=== PATIENT | female | born 2000 ===

== ENCOUNTER 2020-04-21 17:30 | Inpatient (IN) ==
[2020-04-21] MEDS ORDERED: LACTATED RINGERS 1,000 ML IV PRN (18:10)
[2020-04-21] MEDS ORDERED: LACTATED RINGERS 1,000 ML IV ONE (18:10)
[2020-04-21 18:15] LABS: Apearance,Urine Slightly Hazy (Clear); Bilirubin,Urine Small mg/dL (Negative); Blood, Urine Negative (Negative); Glucose,Urine (UA) Negative (Negative); Ketones,Urine 20 mg/dL (Negative); Mucus,Urine Many /LPF (Occasional); Nitrite,Urine Negative (Negative); Protein,Urine 30 MG/DL; RBC,Urine 3 /HPF (0-4); Squamous Epithelial Cell,Urine Occasional /HPF (0-10); Urine Color Orange (Yellow); Urine Specific Gravity 1.029 (1.001-1.035); WBC,Urine 4 /HPF (0-6)
[2020-04-21] MEDS ORDERED: ACETAMINOPHEN 500 MG TABLET PO PRN (18:43)
[2020-04-21 19:00] LABS: Basophils % 0.1 % (0.0-0.8); Hematocrit 37.6 VOL% (35.7-47.0); Immature Granulocytes % 0.4 %; Immature Granulocytes Absolute 0.06 #; Lymphocytes # 0.6 10*3/uL (1.4-4.0); Lymphocytes % 4.2 % (21.3-54.2); Mean Corpuscular HGB Conc 31.9 GM/DL (32-36); Mean Corpuscular Volume 87.6 FL (87-102); Mean Platelet Volume 10.4 FL (9.6-12.0); Monocytes % 3.7 % (1.7-12.7); Neutrophils % 91.6 % (38.7-73.9); Platelet Count 409 T/CUMM (130-400); Red Blood Count 4.29 MC/CUMM (3.8-5.5); Red Cell Distribution Width 13.7 % (9.3-17.3); White Blood Count 13.7 T/CUMM (4-12)
[2020-04-21] MEDS ORDERED: LEVOFLOXACIN INJ 500 MG in PREMIX 1 EACH IV ONE (19:50)
[2020-04-21 20:33] LABS: Band Neutrophils 1 % (0-10); Lymphocytes 9 % (20-55); Segmented Neutrophils 88 % (50-85); Total Cells Counted 100
[2020-04-21 20:34] LABS: Hypochromasia 1+; Microcytosis 1+; Toxic Granulation 1+
[2020-04-21 20:35] LABS: Platelet Estimate Normal
[2020-04-21] MEDS ORDERED: MEPERIDINE 50 MG/1 ML VIAL IM ONE (21:34)
[2020-04-21] MEDS ORDERED: ONDANSETRON 4 MG/2 ML VIAL IV ONE (21:54)
[2020-04-21] MEDS ORDERED: MEPERIDINE 50 MG/1 ML VIAL IV ONE (21:54)
[2020-04-21] MEDS: LACTATED RINGERS 1,000 ML IV SCH (22:18)
[2020-04-22] MEDS ORDERED: MEPERIDINE 50 MG/1 ML VIAL IV ONE (03:24)
[2020-04-22] MEDS: LACTATED RINGERS 1,000 ML IV SCH ×2 (06:45→18:03)
[2020-04-22 09:37] LABS: Basophils % 0.1 % (0.0-0.8); Eosinophils % 0.1 % (0.00-10.9); Hematocrit 31.2 VOL% (35.7-47.0); Immature Granulocytes % 0.4 %; Immature Granulocytes Absolute 0.06 #; Lymphocytes # 1.1 10*3/uL (1.4-4.0); Lymphocytes % 7.8 % (21.3-54.2); Mean Corpuscular HGB Conc 32.1 GM/DL (32-36); Mean Corpuscular Volume 86.2 FL (87-102); Mean Platelet Volume 9.6 FL (9.6-12.0); Monocytes % 4.9 % (1.7-12.7); Neutrophils % 86.7 % (38.7-73.9); Platelet Count 363 T/CUMM (130-400); Red Blood Count 3.62 MC/CUMM (3.8-5.5); Red Cell Distribution Width 13.5 % (9.3-17.3); White Blood Count 14.4 T/CUMM (4-12)
[2020-04-22] MEDS ORDERED: ONDANSETRON 4 MG/2 ML VIAL IV PRN (09:52)
[2020-04-22] MEDS ORDERED: MEPERIDINE 50 MG/1 ML VIAL IV PRN (09:52)
[2020-04-22] MEDS ORDERED: ceFAZolin 1,000 MG in SYRINGE 1 EACH IV ONE (10:13)
[2020-04-22] MEDS ORDERED: BUPIVACAINE MPF 0.25% 30 ML VIAL ONE (10:47)
[2020-04-22] MEDS ORDERED: LIDOCAINE 1%/EPI INJ 20 ML VIAL ONE (10:47)
[2020-04-22] MEDS ORDERED: TISSUE ADHESIVE 1 EACH APPLICATOR TOP ONE (12:32)
[2020-04-22] MEDS ORDERED: LIDOCAINE 2% 5 ML VIAL ONE (13:57)
[2020-04-22] MEDS ORDERED: propofoL 200 MG/20 ML VIAL IV ONE (13:57)
[2020-04-22] MEDS ORDERED: SEVOFLURANE 1 UNIT/15 MINUTE INH ONE (13:57)
[2020-04-22] MEDS ORDERED: ROCURONIUM 100 MG/10 ML VIAL IV ONE (13:58)
[2020-04-22] MEDS ORDERED: ONDANSETRON 4 MG/2 ML VIAL ONE (13:58)
[2020-04-22] MEDS ORDERED: SUCCINYLCHOLINE 200 MG/10 ML VIAL ONE (13:58)
[2020-04-22] MEDS ORDERED: LACTATED RINGERS 1,000 ML IV ONE (13:58)
[2020-04-22] MEDS ORDERED: GLYCOPYRROLATE 0.4 MG/2 ML VIAL ONE (13:58)
[2020-04-22] MEDS ORDERED: fentaNYL 100 MCG/2 ML VIAL ONE (13:58)
[2020-04-22] MEDS ORDERED: NEOSTIGMINE 10 MG/10 ML VIAL ONE (13:58)
[2020-04-22] MEDS ORDERED: MEPERIDINE 25 MG/1 ML VIAL ONE (14:09)
[2020-04-22] MEDS ORDERED: MEPERIDINE 25 MG/1 ML VIAL IV PRN (14:11)
[2020-04-22] MEDS: MEPERIDINE 50 MG/1 ML VIAL IV PRN ×2 (17:24→23:28)
[2020-04-22] MEDS ORDERED: IBUPROFEN 800 MG TABLET PO PRN (18:02)
[2020-04-22] MEDS ORDERED: RHO(D) IMMUNE GLOBULIN 300 MCG SYRINGE IM ONE (18:02)
[2020-04-22] MEDS ORDERED: ACETAMINOPHEN 325 MG TABLET PO PRN (18:02)
[2020-04-22 18:14] LABS: Apearance,Urine CLEAR (Clear); Bilirubin,Urine Negative (Negative); Blood, Urine Negative (Negative); Glucose,Urine (UA) Negative (Negative); Ketones,Urine 80 mg/dL (Negative); Mucus,Urine Few /LPF (Occasional); Nitrite,Urine Negative (Negative); Protein,Urine Negative; RBC,Urine 2 /HPF (0-4); Squamous Epithelial Cell,Urine Occasional /HPF (0-10); Urine Color Amber (Yellow); Urine Specific Gravity 1.021 (1.001-1.035); WBC,Urine 18 /HPF (0-6)
[2020-04-22] MEDS ORDERED: LACTATED RINGERS 1,000 ML IV SCH (18:30)
[2020-04-22] MEDS ORDERED: DOCUSATE SODIUM 100 MG CAPSULE PO SCH (21:00)
[2020-04-22] MEDS: HYDROmorphone 2 MG/1 ML VIAL IV PRN (21:10)
[2020-04-22] MEDS: ceFAZolin 2,000 MG in PREMIX 1 EACH IV SCH (21:14)
[2020-04-22] MEDS ORDERED: ceFAZolin 2,000 MG in PREMIX 1 EACH IV SCH (21:30)
[2020-04-23] MEDS: ONDANSETRON 4 MG/2 ML VIAL IV PRN ×4 (03:22→23:45)
[2020-04-23] MEDS: MEPERIDINE 50 MG/1 ML VIAL IV PRN ×3 (03:23→15:33)
[2020-04-23] MEDS: ceFAZolin 2,000 MG in PREMIX 1 EACH IV SCH (05:06)
[2020-04-23 05:36] LABS: Basophils % 0.2 % (0.0-0.8); Eosinophils % 0.1 % (0.00-10.9); Hematocrit 32.6 VOL% (35.7-47.0); Hemoglobin 10.6 GM/DL (12.0-16.0); Immature Granulocytes % 0.7 %; Immature Granulocytes Absolute 0.12 #; Lymphocytes # 0.9 10*3/uL (1.4-4.0); Lymphocytes % 4.8 % (21.3-54.2); Mean Corpuscular HGB Conc 32.5 GM/DL (32-36); Mean Corpuscular Volume 86.2 FL (87-102); Mean Platelet Volume 10.1 FL (9.6-12.0); Monocytes % 4.1 % (1.7-12.7); Neutrophils % 90.1 % (38.7-73.9); Platelet Count 412 T/CUMM (130-400); Red Blood Count 3.78 MC/CUMM (3.8-5.5); Red Cell Distribution Width 13.9 % (9.3-17.3); White Blood Count 18.4 T/CUMM (4-12)
[2020-04-23 06:00] LABS: Band Neutrophils 1 % (0-10); Lymphocytes 5 % (20-55); Segmented Neutrophils 90 % (50-85); Total Cells Counted 100
[2020-04-23 06:02] LABS: Platelet Estimate Adequate
[2020-04-23 06:03] LABS: Hypochromasia Slight
[2020-04-23] MEDS ORDERED: MULTIVITAMIN (PRENATAL) TABLET PO SCH (09:00)
[2020-04-23] MEDS ORDERED: DOCUSATE SODIUM 100 MG CAPSULE PO PRN (09:37)
[2020-04-23] MEDS ORDERED: PIPERACILLIN/TAZOBACTAM 3,375 MG VIAL IV ONE ×2 (12:49→13:06)
[2020-04-23] MEDS ORDERED: SODIUM CHLORIDE 0.9% 100 ML IV ONE ×2 (12:49→13:06)
[2020-04-23] MEDS: PIPERACILLIN/TAZOBACTAM 3,375 MG in SODIUM CHLORIDE 0.9% 100 ML IV SCH ×2 (12:52→20:20)
[2020-04-23] MEDS: HYDROmorphone 2 MG/1 ML VIAL IV PRN ×3 (13:10→23:45)
[2020-04-23] MEDS: SODIUM CHLORIDE 0.9% 1,000 ML IV SCH ×2 (14:00→16:56)
[2020-04-23] MEDS: SIMETHICONE CHEW 80 MG TABLET PO PRN (22:19)
[2020-04-24] MEDS: SODIUM CHLORIDE 0.9% 1,000 ML IV SCH (00:50)
[2020-04-24] MEDS ORDERED: ONDANSETRON 4 MG/2 ML VIAL IV PRN (03:03)
[2020-04-24] MEDS: PIPERACILLIN/TAZOBACTAM 3,375 MG in SODIUM CHLORIDE 0.9% 100 ML IV SCH ×3 (03:48→18:42)
[2020-04-24] MEDS: oxyCODONE/ACETAMINOPHEN 5-325 MG TABLET PO PRN ×4 (03:54→23:04)
[2020-04-24] MEDS: SIMETHICONE CHEW 80 MG TABLET PO PRN (05:15)
[2020-04-24 05:20] LABS: Basophils % 0.2 % (0.0-0.8); Eosinophils % 0.1 % (0.00-10.9); Hematocrit 31.8 VOL% (35.7-47.0); Hemoglobin 10.2 GM/DL (12.0-16.0); Immature Granulocytes % 0.8 %; Immature Granulocytes Absolute 0.11 #; Lymphocytes # 1.1 10*3/uL (1.4-4.0); Lymphocytes % 7.8 % (21.3-54.2); Mean Corpuscular HGB Conc 32.1 GM/DL (32-36); Mean Corpuscular Volume 86.6 FL (87-102); Mean Platelet Volume 10.8 FL (9.6-12.0); Monocytes % 4.6 % (1.7-12.7); Neutrophils % 86.5 % (38.7-73.9); Red Blood Count 3.67 MC/CUMM (3.8-5.5); Red Cell Distribution Width 13.9 % (9.3-17.3); White Blood Count 14.5 T/CUMM (4-12)
[2020-04-24 05:27] LABS: Platelet Count 223 T/CUMM (130-400)
[2020-04-24 05:54] LABS: Hypochromasia 1+; Platelet Estimate Adequate
[2020-04-24] MEDS: METOCLOPRAMIDE 10 MG/2 ML VIAL IV SCH ×3 (07:53→23:05)
[2020-04-24] MEDS: MAGNESIUM HYDROXIDE SUSP 30 ML UDCUP PO SCH ×2 (09:01→21:19)
[2020-04-24] MEDS: DOCUSATE SODIUM 100 MG CAPSULE PO SCH (09:01)
[2020-04-25] MEDS: PIPERACILLIN/TAZOBACTAM 3,375 MG in SODIUM CHLORIDE 0.9% 100 ML IV SCH ×4 (03:47→19:36)
[2020-04-25] MEDS: oxyCODONE/ACETAMINOPHEN 5-325 MG TABLET PO PRN ×3 (05:32→18:59)
[2020-04-25 08:22] LABS: Basophils % 0.1 % (0.0-0.8); Eosinophils % 0.2 % (0.00-10.9); Hematocrit 28.6 VOL% (35.7-47.0); Hemoglobin 9.2 GM/DL (12.0-16.0); Immature Granulocytes % 0.6 %; Immature Granulocytes Absolute 0.07 #; Lymphocytes # 1.1 10*3/uL (1.4-4.0); Lymphocytes % 10.3 % (21.3-54.2); Mean Corpuscular HGB Conc 32.2 GM/DL (32-36); Mean Corpuscular Volume 87.2 FL (87-102); Mean Platelet Volume 9.2 FL (9.6-12.0); Neutrophils % 82.8 % (38.7-73.9); Platelet Count 388 T/CUMM (130-400); Red Blood Count 3.28 MC/CUMM (3.8-5.5); Red Cell Distribution Width 13.9 % (9.3-17.3); White Blood Count 10.9 T/CUMM (4-12)
[2020-04-25] MEDS: DOCUSATE SODIUM 100 MG CAPSULE PO SCH (08:54)
[2020-04-25] MEDS: METOCLOPRAMIDE 10 MG/2 ML VIAL IV SCH (09:30)
[2020-04-25] MEDS: PANTOPRAZOLE 40 MG TABLET PO SCH (10:10)
[2020-04-25] MEDS: MAGNESIUM HYDROXIDE SUSP 30 ML UDCUP PO SCH (10:12)
[2020-04-25] MEDS ORDERED: SODIUM CHLORIDE 0.9% 250 ML IV SCH (12:25)
[2020-04-26] MEDS: oxyCODONE/ACETAMINOPHEN 5-325 MG TABLET PO PRN ×4 (02:18→22:17)
[2020-04-26] MEDS: PIPERACILLIN/TAZOBACTAM 3,375 MG in SODIUM CHLORIDE 0.9% 100 ML IV SCH (03:48)
[2020-04-26 04:06] LABS: Basophils % 0.2 % (0.0-0.8); Eosinophils % 0.2 % (0.00-10.9); Hematocrit 29.9 VOL% (35.7-47.0); Hemoglobin 9.4 GM/DL (12.0-16.0); Immature Granulocytes % 0.6 %; Immature Granulocytes Absolute 0.08 #; Lymphocytes # 1.5 10*3/uL (1.4-4.0); Lymphocytes % 11.9 % (21.3-54.2); Mean Corpuscular HGB Conc 31.4 GM/DL (32-36); Mean Corpuscular Volume 86.9 FL (87-102); Monocytes % 8.3 % (1.7-12.7); Neutrophils % 78.8 % (38.7-73.9); Platelet Count 409 T/CUMM (130-400); Red Blood Count 3.44 MC/CUMM (3.8-5.5); Red Cell Distribution Width 13.9 % (9.3-17.3); White Blood Count 12.7 T/CUMM (4-12)
[2020-04-26] MEDS: MAGNESIUM HYDROXIDE SUSP 30 ML UDCUP PO SCH (08:07)
[2020-04-26] MEDS: PANTOPRAZOLE 40 MG TABLET PO SCH (08:07)
[2020-04-26] MEDS: DOCUSATE SODIUM 100 MG CAPSULE PO SCH (08:07)
[2020-04-26] MEDS: SIMETHICONE CHEW 80 MG TABLET PO PRN ×2 (11:17→23:44)
[2020-04-26] MEDS: METOCLOPRAMIDE 10 MG TABLET PO PRN ×2 (11:17→18:45)
[2020-04-26] MEDS: AMOXICILLIN/CLAV 875 MG TABLET PO SCH ×2 (13:44→22:15)
[2020-04-27] MEDS: METOCLOPRAMIDE 10 MG TABLET PO PRN (03:04)
[2020-04-27] MEDS: oxyCODONE/ACETAMINOPHEN 5-325 MG TABLET PO PRN ×3 (04:05→17:25)
[2020-04-27 04:20] LABS: Basophils % 0.1 % (0.0-0.8); Eosinophils % 0.3 % (0.00-10.9); Hematocrit 30.9 VOL% (35.7-47.0); Hemoglobin 9.9 GM/DL (12.0-16.0); Immature Granulocytes % 0.6 %; Immature Granulocytes Absolute 0.06 #; Lymphocytes # 1.7 10*3/uL (1.4-4.0); Lymphocytes % 17.8 % (21.3-54.2); Mean Corpuscular Volume 85.1 FL (87-102); Mean Platelet Volume 8.9 FL (9.6-12.0); Monocytes % 8.6 % (1.7-12.7); Neutrophils % 72.6 % (38.7-73.9); Platelet Count 404 T/CUMM (130-400); Red Blood Count 3.63 MC/CUMM (3.8-5.5); Red Cell Distribution Width 13.8 % (9.3-17.3); White Blood Count 9.3 T/CUMM (4-12)
[2020-04-27 04:42] LABS: Calcium 7.9 MG/DL (8.5-10.1); Osmolality,Calculated 272.5 MOS/KG (273-304)
[2020-04-27] MEDS: SIMETHICONE CHEW 80 MG TABLET PO PRN (08:45)
[2020-04-27] MEDS: POTASSIUM CHLORIDE 20 MEQ TABLET PO PRN ×4 (08:45→14:45)
[2020-04-27] MEDS: AMOXICILLIN/CLAV 875 MG TABLET PO SCH (08:45)
[2020-04-27] MEDS: PANTOPRAZOLE 40 MG TABLET PO SCH (08:45)
[2020-04-27] MEDS: MAGNESIUM HYDROXIDE SUSP 30 ML UDCUP PO SCH (08:45)
[2020-04-27] MEDS: DOCUSATE SODIUM 100 MG CAPSULE PO SCH (08:45)
[2020-04-27 18:20] VITALS: BP 103/42
== END 2020-04-27 19:17 | disposition home or self-care (01) | DRG 817 ==
LOC: EDUNIT# → EDBD → N.LDOUT 17:30 → N.LD 17:32 → N.OB 04-23 13:49
PROVIDERS: ADMIT Obstetrics & Gynecology; ATTEND Obstetrics & Gynecology

== ENCOUNTER 2020-05-21 19:07 | Inpatient (IN) ==
[2020-05-21] MEDS ORDERED: ceFAZolin 2,000 MG in PREMIX 1 EACH IV ONE (19:30)
[2020-05-21] MEDS ORDERED: BETAMETH SODIUM PHOS/ACETATE 30 MG/5 ML VIAL IM ONE (19:37)
[2020-05-21] MEDS ORDERED: BETAMETH SODIUM PHOS/ACETATE 30 MG/5 ML VIAL ONE (19:42)
[2020-05-21 19:47] LABS: Apearance,Urine CLEAR (Clear); Bilirubin,Urine Negative (Negative); Blood, Urine Moderate mg/dL (Negative); Glucose,Urine (UA) Negative (Negative); Ketones,Urine Negative (Negative); Nitrite,Urine Negative (Negative); Protein,Urine Negative; RBC,Urine 20 /HPF (0-4); Squamous Epithelial Cell,Urine Occasional /HPF (0-10); Urine Color Yellow (Yellow); Urine Specific Gravity 1.011 (1.001-1.035); Urine Urobilinogen < 2.0 EU/DL (0.2-1.0); WBC,Urine 22 /HPF (0-6)
[2020-05-21] MEDS ORDERED: OXYTOCIN/LR 20 UNIT/1,000 ML BAG IV ONE ×3 (19:52→20:34)
[2020-05-21] MEDS ORDERED: LACTATED RINGERS 1,000 ML IV PRN (20:00)
[2020-05-21] MEDS ORDERED: ONDANSETRON 4 MG/2 ML VIAL IV PRN ×2 (20:00→20:34)
[2020-05-21 20:12] LABS: Basophils # 0.1 10*3/uL (0.0-0.2); Basophils % 0.2 % (0.0-0.8); Hematocrit 33.2 VOL% (35.7-47.0); Hemoglobin 10.7 GM/DL (12.0-16.0); Immature Granulocytes % 0.7 %; Immature Granulocytes Absolute 0.17 #; Lymphocytes # 3.2 10*3/uL (1.4-4.0); Lymphocytes % 13.3 % (21.3-54.2); Mean Corpuscular HGB Conc 32.2 GM/DL (32-36); Mean Corpuscular Volume 83.2 FL (87-102); Mean Platelet Volume 10.1 FL (9.6-12.0); Monocytes % 6.1 % (1.7-12.7); Neutrophils % 79.7 % (38.7-73.9); Platelet Count 337 T/CUMM (130-400); Red Blood Count 3.99 MC/CUMM (3.8-5.5); Red Cell Distribution Width 13.9 % (9.3-17.3)
[2020-05-21 20:23] LABS: Albumin 2.3 G/DL (3.4-5.0); Bilirubin,Total 0.4 MG/DL (0.2-1.0); Calcium 8.6 MG/DL (8.5-10.1); Osmolality,Calculated 264.2 MOS/KG (273-304); Total Protein 7.8 G/DL (6.4-8.3)
[2020-05-21 20:30] LABS: Cord Arterial Blood HCO3 19.6 MMOL/L
[2020-05-21 20:34] LABS: Cord Venous Blood HCO3 22.4 MMOL/L; Cord Venous Blood PCO2 33.6 MMHG; Cord Venous Blood PO2 35.5
[2020-05-21] MEDS ORDERED: BENZOCAINE 20%/MENTHOL 0.5% SPRAY 56 GM CAN TOP PRN (20:34)
[2020-05-21] MEDS ORDERED: DIPH/TET/ACEL PERT BOOSTER VACCINE 0.5 ML VIAL IM ONE (20:34)
[2020-05-21] MEDS ORDERED: RHO(D) IMMUNE GLOBULIN 300 MCG SYRINGE IM ONE (20:34)
[2020-05-21] MEDS ORDERED: LANOLIN 50% CREAM 0.3 OZ TUBE TOP PRN (20:34)
[2020-05-21] MEDS ORDERED: BISACODYL 10 MG SUPP RECTAL PRN (20:34)
[2020-05-21] MEDS ORDERED: MEASLES/MUMPS/RUBELLA VACCINE 0.5 ML VIAL SUBCUT ONE (20:34)
[2020-05-21] MEDS ORDERED: WITCH HAZEL PADS 100/JAR TOP PRN (20:34)
[2020-05-21] MEDS ORDERED: HYDROCORTISONE 2.5% RECTAL CREAM 30 GM TUBE TOP PRN (20:34)
[2020-05-21 20:41] LABS: Hypochromasia Slight; Lymphocytes 10 % (20-55); Microcytosis Slight; Platelet Estimate Normal; Segmented Neutrophils 85 % (50-85); Total Cells Counted 100
[2020-05-22] MEDS: IBUPROFEN 800 MG TABLET PO PRN ×2 (04:52→20:55)
[2020-05-22 05:08] LABS: Hepatitis B Surface Ag Quant < 0.10 Index; Hepatitis B Surface Ag Result Negative (Negative)
[2020-05-22 05:20] LABS: Basophils % 0.2 % (0.0-0.8); Hematocrit 29.9 VOL% (35.7-47.0); Hemoglobin 9.5 GM/DL (12.0-16.0); Immature Granulocytes % 0.6 %; Immature Granulocytes Absolute 0.12 #; Lymphocytes # 2.4 10*3/uL (1.4-4.0); Lymphocytes % 11.6 % (21.3-54.2); Mean Corpuscular HGB Conc 31.8 GM/DL (32-36); Mean Corpuscular Volume 84.2 FL (87-102); Mean Platelet Volume 10.5 FL (9.6-12.0); Monocytes % 5.3 % (1.7-12.7); Neutrophils % 82.3 % (38.7-73.9); Platelet Count 298 T/CUMM (130-400); Red Blood Count 3.55 MC/CUMM (3.8-5.5); Red Cell Distribution Width 13.8 % (9.3-17.3); White Blood Count 20.6 T/CUMM (4-12)
[2020-05-22 07:04] LABS: Anisocytosis 1+; Platelet Estimate Normal
[2020-05-22] MEDS: DOCUSATE SODIUM 100 MG CAPSULE PO SCH ×2 (09:11→20:50)
[2020-05-22] MEDS ORDERED: LEVOFLOXACIN INJ 500 MG in PREMIX 1 EACH IV ONE ×2 (10:06→14:00)
[2020-05-22] MEDS ORDERED: METHYLERGONOVINE 0.2 MG/1 ML AMP ONE (13:47)
[2020-05-22] MEDS: ACETAMINOPHEN 325 MG TABLET PO PRN (15:52)
[2020-05-22] MEDS: oxyCODONE/ACETAMINOPHEN 5-325 MG TABLET PO PRN (17:42)
[2020-05-22 18:14] LABS: HIV Antigen/Antibody Result Nonreactive (Nonreactive)
[2020-05-23] MEDS ORDERED: LACTATED RINGERS 1,000 ML IV ONE (07:48)
[2020-05-23] MEDS ORDERED: ceFAZolin 2,000 MG in PREMIX 1 EACH IV ONE (07:48)
[2020-05-23] MEDS: ACETAMINOPHEN 325 MG TABLET PO PRN (07:49)
[2020-05-23] MEDS ORDERED: LEVOFLOXACIN 500 MG TABLET PO SCH (09:00)
[2020-05-23] MEDS: DOCUSATE SODIUM 100 MG CAPSULE PO SCH ×3 (09:12→21:03)
[2020-05-23] MEDS: IBUPROFEN 800 MG TABLET PO PRN ×2 (09:12→21:05)
[2020-05-23 09:45] LABS: Hematocrit 29.2 VOL% (35.7-47.0); Hemoglobin 9.3 GM/DL (12.0-16.0); Mean Corpuscular HGB Conc 31.8 GM/DL (32-36); Mean Corpuscular Volume 84.4 FL (87-102); Platelet Count 281 T/CUMM (130-400); Red Blood Count 3.46 MC/CUMM (3.8-5.5); Red Cell Distribution Width 14.3 % (9.3-17.3); White Blood Count 10.6 T/CUMM (4-12)
[2020-05-23 09:46] LABS: Basophils % 0.3 % (0.0-0.8); Eosinophils % 0.2 % (0.00-10.9); Immature Granulocytes % 0.8 %; Immature Granulocytes Absolute 0.08 #; Lymphocytes # 1.2 10*3/uL (1.4-4.0); Lymphocytes % 11.4 % (21.3-54.2); Monocytes % 5.8 % (1.7-12.7); Neutrophils % 81.5 % (38.7-73.9)
[2020-05-23] MEDS ORDERED: MEPERIDINE 50 MG/1 ML VIAL IV ONE (10:30)
[2020-05-23] MEDS ORDERED: ONDANSETRON 4 MG/2 ML VIAL IV ONE (10:31)
[2020-05-23] MEDS: oxyCODONE/ACETAMINOPHEN 5-325 MG TABLET PO PRN ×2 (14:09→22:22)
[2020-05-23] MEDS ORDERED: PIPERACILLIN/TAZOBACTAM 3,375 MG in SODIUM CHLORIDE 0.9% 100 ML IV SCH (15:30)
[2020-05-23] MEDS: AMPICILLIN/SULBACTAM 1,500 MG in SODIUM CHLORIDE 0.9% 100 ML IV SCH ×2 (16:27→23:15)
[2020-05-23] MEDS: LACTATED RINGERS 1,000 ML IV SCH (16:35)
[2020-05-23] MEDS ORDERED: ceFAZolin 1,000 MG in SYRINGE 1 EACH IV SCH (17:00)
[2020-05-23] MEDS ORDERED: AMPICILLIN/SULBACTAM 3,000 MG VIAL ONE (23:02)
[2020-05-23] MEDS ORDERED: AMPICILLIN 2,000 MG VIAL ONE (23:03)
[2020-05-24] MEDS: LACTATED RINGERS 1,000 ML IV SCH ×2 (01:00→11:26)
[2020-05-24] MEDS: AMPICILLIN/SULBACTAM 1,500 MG in SODIUM CHLORIDE 0.9% 100 ML IV SCH ×4 (04:42→23:28)
[2020-05-24 06:06] LABS: Basophils % 0.3 % (0.0-0.8); Eosinophils # 0.3 10*3/uL (0.0-0.87); Eosinophils % 3.3 % (0.00-10.9); Hematocrit 26.1 VOL% (35.7-47.0); Hemoglobin 8.1 GM/DL (12.0-16.0); Immature Granulocytes % 0.4 %; Immature Granulocytes Absolute 0.04 #; Lymphocytes # 2.4 10*3/uL (1.4-4.0); Lymphocytes % 25.9 % (21.3-54.2); Mean Corpuscular Volume 86.4 FL (87-102); Mean Platelet Volume 11.2 FL (9.6-12.0); Monocytes % 8.9 % (1.7-12.7); Neutrophils % 61.2 % (38.7-73.9); Platelet Count 293 T/CUMM (130-400); Red Blood Count 3.02 MC/CUMM (3.8-5.5); Red Cell Distribution Width 14.3 % (9.3-17.3); White Blood Count 9.4 T/CUMM (4-12)
[2020-05-24 06:55] LABS: Calcium 7.9 MG/DL (8.5-10.1); Osmolality,Calculated 278.3 MOS/KG (273-304)
[2020-05-24] MEDS: IBUPROFEN 800 MG TABLET PO PRN ×2 (07:18→20:12)
[2020-05-24] MEDS: FERROUS SULFATE 325 MG TABLET PO SCH ×3 (08:09→20:33)
[2020-05-24] MEDS: DOCUSATE SODIUM 100 MG CAPSULE PO SCH ×2 (08:09→20:33)
[2020-05-24] MEDS: POTASSIUM CHLORIDE 20 MEQ TABLET PO SCH (09:03)
[2020-05-24] MEDS: oxyCODONE/ACETAMINOPHEN 5-325 MG TABLET PO PRN ×2 (15:14→21:54)
[2020-05-25] MEDS: AMPICILLIN/SULBACTAM 1,500 MG in SODIUM CHLORIDE 0.9% 100 ML IV SCH (04:37)
[2020-05-25 05:34] LABS: Basophils % 0.2 % (0.0-0.8); Eosinophils # 0.4 10*3/uL (0.0-0.87); Hematocrit 25.7 VOL% (35.7-47.0); Immature Granulocytes % 0.6 %; Immature Granulocytes Absolute 0.05 #; Lymphocytes # 2.8 10*3/uL (1.4-4.0); Lymphocytes % 30.8 % (21.3-54.2); Mean Corpuscular HGB Conc 31.1 GM/DL (32-36); Mean Corpuscular Volume 85.7 FL (87-102); Mean Platelet Volume 9.7 FL (9.6-12.0); Monocytes % 8.1 % (1.7-12.7); Neutrophils % 56.3 % (38.7-73.9); Platelet Count 306 T/CUMM (130-400); Red Cell Distribution Width 14.2 % (9.3-17.3); White Blood Count 9.1 T/CUMM (4-12)
[2020-05-25 05:47] LABS: Calcium 7.9 MG/DL (8.5-10.1); Osmolality,Calculated 278.3 MOS/KG (273-304)
[2020-05-25] MEDS: oxyCODONE/ACETAMINOPHEN 5-325 MG TABLET PO PRN (07:14)
[2020-05-25] MEDS: FERROUS SULFATE 325 MG TABLET PO SCH ×3 (08:37→19:36)
[2020-05-25] MEDS: DOCUSATE SODIUM 100 MG CAPSULE PO SCH ×2 (08:38→19:38)
[2020-05-25] MEDS: POTASSIUM CHLORIDE 20 MEQ TABLET PO SCH (08:38)
[2020-05-25] MEDS: MEROPENEM 500 MG in SODIUM CHLORIDE 0.9% 100 ML IV SCH ×3 (10:02→22:20)
[2020-05-25] MEDS: VANCOMYCIN INJ 1,250 MG in SODIUM CHLORIDE 0.9% 250 ML IV SCH ×2 (12:01→19:36)
[2020-05-25] MEDS ORDERED: diphenhydrAMINE CAP 25 MG CAPSULE PO ONE (13:28)
[2020-05-25] MEDS ORDERED: diphenhydrAMINE CAP 25 MG CAPSULE ONE (13:33)
[2020-05-25] MEDS: ACETAMINOPHEN 325 MG TABLET PO PRN (13:45)
[2020-05-25] MEDS: IBUPROFEN 800 MG TABLET PO PRN (19:38)
[2020-05-26] MEDS: VANCOMYCIN INJ 1,250 MG in SODIUM CHLORIDE 0.9% 250 ML IV SCH ×3 (03:20→20:02)
[2020-05-26] MEDS: MEROPENEM 500 MG in SODIUM CHLORIDE 0.9% 100 ML IV SCH ×3 (05:25→17:55)
[2020-05-26] MEDS: FERROUS SULFATE 325 MG TABLET PO SCH ×3 (09:45→20:49)
[2020-05-26] MEDS: DOCUSATE SODIUM 100 MG CAPSULE PO SCH ×2 (09:45→20:49)
[2020-05-26] MEDS: POTASSIUM CHLORIDE 20 MEQ TABLET PO SCH (09:45)
[2020-05-27] MEDS: MEROPENEM 500 MG in SODIUM CHLORIDE 0.9% 100 ML IV SCH ×3 (00:23→11:01)
[2020-05-27] MEDS: oxyCODONE/ACETAMINOPHEN 5-325 MG TABLET PO PRN (00:27)
[2020-05-27] MEDS: VANCOMYCIN INJ 1,250 MG in SODIUM CHLORIDE 0.9% 250 ML IV SCH (04:15)
[2020-05-27 08:08] LABS: Basophils % 0.4 % (0.0-0.8); Eosinophils # 0.3 10*3/uL (0.0-0.87); Eosinophils % 4.1 % (0.00-10.9); Hematocrit 28.2 VOL% (35.7-47.0); Immature Granulocytes % 0.9 %; Immature Granulocytes Absolute 0.07 #; Lymphocytes # 3.2 10*3/uL (1.4-4.0); Lymphocytes % 39.8 % (21.3-54.2); Mean Corpuscular HGB Conc 31.9 GM/DL (32-36); Mean Corpuscular Volume 84.9 FL (87-102); Mean Platelet Volume 9.6 FL (9.6-12.0); Monocytes % 9.1 % (1.7-12.7); Neutrophils % 45.7 % (38.7-73.9); Platelet Count 398 T/CUMM (130-400); Red Blood Count 3.32 MC/CUMM (3.8-5.5); Red Cell Distribution Width 14.1 % (9.3-17.3)
[2020-05-27 08:45] LABS: Calcium 8.1 MG/DL (8.5-10.1); Osmolality,Calculated 278.3 MOS/KG (273-304)
[2020-05-27] MEDS: FERROUS SULFATE 325 MG TABLET PO SCH ×3 (10:59→21:16)
[2020-05-27] MEDS: DOCUSATE SODIUM 100 MG CAPSULE PO SCH ×2 (10:59→21:14)
[2020-05-27] MEDS: POTASSIUM CHLORIDE 20 MEQ TABLET PO SCH (11:00)
[2020-05-27] MEDS: IBUPROFEN 800 MG TABLET PO PRN (13:45)
[2020-05-27] MEDS: metroNIDAZOLE 500 MG TABLET PO SCH ×2 (13:45→21:15)
[2020-05-27] MEDS: CIPROFLOXACIN 500 MG TABLET PO SCH (21:14)
[2020-05-28] MEDS: metroNIDAZOLE 500 MG TABLET PO SCH ×2 (06:35→13:39)
[2020-05-28 09:21] VITALS: BP 101/46
[2020-05-28] MEDS: DOCUSATE SODIUM 100 MG CAPSULE PO SCH (10:16)
[2020-05-28] MEDS: CIPROFLOXACIN 500 MG TABLET PO SCH (10:16)
[2020-05-28] MEDS: FERROUS SULFATE 325 MG TABLET PO SCH (10:16)
== END 2020-05-28 15:30 | disposition home or self-care (01) | DRG 560 ==
LOC: N.LDOUT 19:07 → N.LD 19:11 → N.OB 05-25 12:26
PROVIDERS: ADMIT Obstetrics & Gynecology; ATTEND Obstetrics & Gynecology

== ENCOUNTER 2022-08-02 14:35 | Inpatient (IN) ==
[2022-08-02] MEDS ORDERED: METHYLERGONOVINE 0.2 MG/1 ML AMP IM PRN (14:52)
[2022-08-02] MEDS ORDERED: ONDANSETRON 4 MG/2 ML VIAL IV PRN ×2 (14:52→21:11)
[2022-08-02] MEDS ORDERED: TRANEXAMIC ACID 1,000 MG in SODIUM CHLORIDE 0.9% 100 ML IV PRN (14:52)
[2022-08-02] MEDS ORDERED: CARBOPROST TROMETHAMINE 250 MCG/ML AMP IM PRN (14:52)
[2022-08-02] MEDS ORDERED: OXYTOCIN/LR 20 UNIT/1,000 ML BAG IV ONE ×2 (14:52→20:55)
[2022-08-02] MEDS ORDERED: BUTORPHANOL 2 MG/ML VIAL IV PRN (14:52)
[2022-08-02] MEDS ORDERED: miSOPROStoL 200 MCG TABLET RECTAL PRN (14:52)
[2022-08-02] MEDS ORDERED: MEPERIDINE 50 MG/1 ML VIAL IV PRN (14:52)
[2022-08-02] MEDS ORDERED: AMPICILLIN INJ 2,000 MG in SODIUM CHLORIDE 0.9% 100 ML IV ONE (14:54)
[2022-08-02] MEDS: LACTATED RINGERS 1,000 ML IV SCH ×2 (14:54→15:44)
[2022-08-02] MEDS ORDERED: CITRIC ACID/SODIUM CITRATE 30 ML UDCUP PO ONE (14:55)
[2022-08-02] MEDS ORDERED: FAMOTIDINE 20 MG/2 ML VIAL IV ONE (14:55)
[2022-08-02] MEDS ORDERED: diphenhydrAMINE 50 MG/1 ML VIAL IV PRN (14:55)
[2022-08-02] MEDS ORDERED: NALOXONE 0.4 MG/ML VIAL IV PRN (14:55)
[2022-08-02] MEDS ORDERED: hydrOXYzine HCL 25 MG/1 ML VIAL IM PRN (14:55)
[2022-08-02] MEDS ORDERED: ePHEDrine 50 MG/ML VIAL IV PRN (14:55)
[2022-08-02] MEDS ORDERED: PROMETHAZINE 25 MG/1 ML VIAL IM PRN (14:55)
[2022-08-02] MEDS ORDERED: fentaNYL 2 MCG/ROPIV 0.2% EPID 100 ML EPIDURAL SCH (15:00)
[2022-08-02] MEDS ORDERED: OXYTOCIN/LR 20 UNIT/1,000 ML BAG IV SCH (15:00)
[2022-08-02 15:12] LABS: Basophils % 0.3 % (0.0-0.8); Eosinophils % 0.1 % (0.00-10.9); Hematocrit 35.4 VOL% (35.7-47.0); Hemoglobin 11.4 GM/DL (12.0-16.0); Immature Granulocytes % 0.3 %; Immature Granulocytes Absolute 0.02 #; Lymphocytes # 2.3 10*3/uL (1.4-4.0); Lymphocytes % 31.8 % (21.3-54.2); Mean Corpuscular HGB Conc 32.2 GM/DL (32-36); Mean Corpuscular Volume 84.3 FL (87-102); Mean Platelet Volume 12.5 FL (9.6-12.0); Monocytes # 0.5 10*3/uL (0.11-0.8); Neutrophils % 60.5 % (38.7-73.9); Platelet Count 159 T/CUMM (130-400); Red Cell Distribution Width 15.2 % (9.3-17.3); White Blood Count 7.2 T/CUMM (4-12)
[2022-08-02] MEDS ORDERED: INFLUENZA VIRUS VACCINE 0.5 ML SYRINGE IM ONE (15:12)
[2022-08-02 15:36] LABS: Alanine Aminotransferase 14 U/L (13-56); Albumin 2.3 G/DL (3.4-5.0); Alkaline Phosphatase 140 U/L (45-117); Aspartate Amino Transferase 17 U/L (0-37); Bilirubin,Total < 0.39 MG/DL (0.20-1.00); Blood Urea Nitrogen 7 MG/DL (7-18); Calcium 8.7 MG/DL (8.5-10.1); Carbon Dioxide 23 MMOL/L (21-32); Chloride 110 MMOL/L (98-107); Glucose 72 MG/DL (74-106); Osmolality,Calculated 273.5 MOS/KG (273-304); Potassium 4.1 MMOL/L (3.5-5.1); Sodium 139 MMOL/L (136-145)
[2022-08-02 17:05] LABS: Barbiturates Screen,Urine Negative (Negative); Benzodiazepines Screen,Urine Negative (Negative); Cannabinoid Screen,Urine Negative (Negative); Opiate Screen,Urine Negative (Negative); Phencyclidine Screen,Urine Negative (Negative)
[2022-08-02] MEDS ORDERED: AMPICILLIN INJ 1,000 MG in SODIUM CHLORIDE 0.9% 100 ML IV SCH (19:00)
[2022-08-02 19:04] LABS: Cord Venous Blood PO2 37.8
[2022-08-02] MEDS ORDERED: RHO(D) IMMUNE GLOBULIN 300 MCG SYRINGE IM ONE (20:55)
[2022-08-02] MEDS ORDERED: ACETAMINOPHEN 325 MG TABLET PO PRN (20:55)
[2022-08-02] MEDS ORDERED: oxyCODONE/ACETAMINOPHEN 5-325 MG TABLET PO PRN (20:55)
[2022-08-02] MEDS ORDERED: MEASLES/MUMPS/RUBELLA VACCINE 0.5 ML VIAL SUBCUT ONE (20:55)
[2022-08-02] MEDS ORDERED: WITCH HAZEL PADS 100/JAR TOP PRN (20:55)
[2022-08-02] MEDS ORDERED: BENZOCAINE 20%/MENTHOL 0.5% SPRAY 56 GM CAN TOP PRN (20:55)
[2022-08-02] MEDS ORDERED: BISACODYL 10 MG SUPP RECTAL PRN (20:55)
[2022-08-02] MEDS ORDERED: HYDROCORTISONE 2.5% RECTAL CREAM 30 GM TUBE TOP PRN (20:55)
[2022-08-02] MEDS ORDERED: LANOLIN 50% CREAM 0.3 OZ TUBE TOP PRN (20:55)
[2022-08-02] MEDS ORDERED: DIPH/TET/ACEL PERT BOOSTER VACCINE 0.5 ML VIAL IM ONE (20:55)
[2022-08-02] MEDS: oxyCODONE/ACETAMINOPHEN 5-325 MG TABLET PO PRN ×2 (21:01→22:00)
[2022-08-03 05:53] LABS: Basophils % 0.3 % (0.0-0.8); Eosinophils % 0.1 % (0.00-10.9); Hematocrit 30.2 VOL% (35.7-47.0); Hemoglobin 9.9 GM/DL (12.0-16.0); Immature Granulocytes % 0.4 %; Immature Granulocytes Absolute 0.04 #; Lymphocytes # 2.6 10*3/uL (1.4-4.0); Lymphocytes % 24.6 % (21.3-54.2); Mean Corpuscular HGB Conc 32.8 GM/DL (32-36); Mean Corpuscular Volume 84.8 FL (87-102); Mean Platelet Volume 12.9 FL (9.6-12.0); Monocytes # 0.8 10*3/uL (0.11-0.8); Monocytes % 7.2 % (1.7-12.7); Neutrophils % 67.4 % (38.7-73.9); Platelet Count 143 T/CUMM (130-400); Red Blood Count 3.56 MC/CUMM (3.8-5.5); Red Cell Distribution Width 15.1 % (9.3-17.3); White Blood Count 10.7 T/CUMM (4-12)
[2022-08-03] MEDS: DOCUSATE SODIUM 100 MG CAPSULE PO SCH ×2 (08:35→21:16)
[2022-08-03] MEDS: IBUPROFEN 800 MG TABLET PO PRN (08:35)
[2022-08-04 08:12] VITALS: BP 101/51
[2022-08-04] MEDS: DOCUSATE SODIUM 100 MG CAPSULE PO SCH (09:01)
[2022-08-04] MEDS: IBUPROFEN 800 MG TABLET PO PRN (09:05)
[2022-08-04] MEDS ORDERED: INFLUENZA VIRUS VACCINE 0.5 ML SYRINGE IM ONE (10:51)
== END 2022-08-04 13:30 | disposition home or self-care (01) | DRG 560 ==
LOC: N.LDOUT 14:35 → N.LD 15:23 → N.OB 23:30
PROVIDERS: ADMIT Obstetrics & Gynecology; ATTEND Obstetrics & Gynecology